=== PATIENT | female | born 1955 | race Native Hawaiian/Other Pacific Islander ===

== ENCOUNTER 2018-06-26 11:07 | Emergency (ER) | payer OTHER ==
[2018-06-26 11:11] VITALS: BMI 19.8
--- NOTE | 2018-06-26 11:29 | ED PDOC ---
Arrival/HPI - General Historian: Patient - History of Present Illness Narrative History of Present Illness (Text): 06/26/18 11:11 62 y/o female, pmh including asthma, nkda, post menopausal, c/o rt. periorbital itching x 2 days. Pt. stated that she was working outside to plant the garden at home, came in and rubbing the periorbital as it was itching, no blurry vision/change in vision/painful eye movement, no headache, no numbness or tingling, no pain or burning sensation to the rash as per patient and just "itching" as per patient. Past Medical History - Provider Review Nursing Documentation Reviewed: Yes - Infectious Disease Hx of Infectious Diseases: None - Tetanus Immunization Tetanus Immunization: Unknown - Pulmonary Hx Chronic Obstructive Pulmonary Disease (COPD): Yes - Psychiatric Hx Depression: No Hx Emotional Abuse: No Hx Physical Abuse: No Hx Substance Use: No - Suicidal Assessment Feels Threatened In Home Enviroment: No Family/Social History - Physician Review Nursing Documentation Reviewed: Yes Family/Social History: Unknown Family HX Hx Alcohol Use: No Hx Substance Use: No Hx Substance Use Treatment: No Allergies/Home Meds Allergies/Adverse Reactions: Allergies No Known Allergies Allergy (Verified 09/03/12 07:56) Home Medications: Home Meds Medication Instructions Recorded Confirmed Albuterol Sulfate [Proair Hfa] 0.09 mg IH PRN PRN 09/03/12 06/26/18 Fluticasone/Salmeterol [Advair 1 dsk IH DAILY 09/03/12 06/26/18 Diskus 100/50] Review of Systems - Review of Systems Constitutional: absent: Fatigue, Fevers Eyes: absent: Vision Changes, Photophobia, Eye Pain ENT: absent: Hearing Changes Respiratory: absent: SOB, Cough Cardiovascular: absent: Chest Pain Gastrointestinal: absent: Abdominal Pain, Nausea, Vomiting Skin: Rash, Pruritis, Skin Lesions. absent: Laceration, Abscess, Ulcer, Cellulitis Neurological: absent: Headache, Dizziness Psychiatric: absent: Anxiety, Depression, Suicidal Ideation Physical Exam Vital Signs Reviewed: Yes Temperature: Afebrile Pulse: Regular Respiratory Rate: Normal Appearance: Positive for: Well-Appearing, Non-Toxic, Comfortable Pain Distress: None Mental Status: Positive for: Alert and Oriented X 3 - Systems Exam Head: Present: Atraumatic, Normocephalic Pupils: Present: PERRL Extroacular Muscles: Present: EOMI, Other (vision 20/50 bilaterally). No: Entrapment Conjunctiva: Present: Normal, Other (Rt. eye examined with fluorsein strip show there is no uptake and no corneal abrasion/ulcers or any dendritic lesions. Rt. periorbital is mild erythematous and mild swelling which is unilateral to the right not crossing the midline, ) Ears: Present: NORMAL TM, Normal Canal. No: Erythema Mouth: Present: Moist Mucous Membranes Pharnyx: No: ERYTHEMA, EXUDATE, TONSILS ENLARGED Nose (External): Present: Atraumatic. No: Abrasion, Contusion, Laceration Nose (Internal): Present: Normal Inspection, No Active Bleeding. No: Rhinorrhea, Septal Deviation, Septal Hematoma, Epistaxis Neck: Present: Normal Range of Motion, Trachea Midline. No: Meningeal Signs, MIDLINE TENDERNESS, Paraspinal Tenderness, Lymphadenopathy Respiratory/Chest: Present: Clear to Auscultation, Good Air Exchange. No: Respiratory Distress, Accessory Muscle Use Cardiovascular: Present: Regular Rate and Rhythm, Normal S1, S2. No: Murmurs Abdomen: No: Tenderness, Distention, Peritoneal Signs, Rebound, Guarding Back: Present: Normal Inspection. No: CVA Tenderness, Midline Tenderness, Paraspinal Tenderness, Pain with Leg Raise, Decubitus Ulcer Upper Extremity: Present: Normal Inspection. No: Cyanosis, Edema Lower Extremity: Present: Normal Inspection. No: Edema Neurological: Present: GCS=15, CN II-XII Intact, Speech Normal, Motor Func Grossly Intact, Normal Cerebellar Funct, Gait Normal, Memory Normal Skin: Present: Warm, Dry, Normal Color. No: Rashes Lymphatic: No: Cervical Adenopathy, Axillary Adenopathy Psychiatric: Present: Alert, Oriented x 3, Normal Insight, Normal Concentration Medical Decision Making ED Course and Treatment: 06/26/18 11:40 Dermatitis vs. shingles vs. preseptal cellulitis -I explained to the patient due to her age and periorbital swelling with redness, will cover her for shingles and preseptal cellulitis with valtrex/augmentin and bactrim ds. I advised her to call the opthlamologist today and see them in the office today for further evaluation. She should stay out of garden and work until this condition resolved. Pt. has no difficulty or painful movement of the eye, no signs of orbital cellulitis at this time. 06/26/18 13:19 -I spoke to Dr. Mancilla, discussed about the case and he recommend to discharge the patient and tell her to go to the office now. Pt. is aware of this plan and she would go see dr. mancilla today. -Discharge home with valtrex, augmentin, bactrim ds, claritin, prednisone, cold compress, go see the field tech Dr. Mancilla today as they are expecting you, see your own pmd within 2 days, return to the ER for any new or worsening signs or symptoms. - PA / RECOVERER / Resident Statement MD/DO has reviewed & agrees with the documentation as recorded. Disposition/Present on Arrival - Present on Arrival Any Indicators Present on Arrival: No History of DVT/PE: No History of Uncontrolled Diabetes: No Urinary Catheter: No History of Decub. Ulcer: No History Surgical Site Infection Following: None - Disposition Have Diagnosis and Disposition been Completed?: Yes Diagnosis: Periorbital swelling, Rash Disposition: HOME/ ROUTINE Disposition Time: 12:01 Patient Plan: Discharge Patient Problems: Current Active Problems Problem Status Onset Periorbital swelling Acute Rash Acute Condition: GOOD Additional Instructions: -Discharge home with valtrex, augmentin, bactrim ds, claritin, prednisone, cold compress, go see the field tech Dr. Mancilla today as they are expecting you, see your own pmd within 2 days, return to the ER for any new or worsening signs or symptoms. Prescriptions: Amoxicillin/Clavulanate [Augmentin 875 MG-125 MG] 1 tab PO BID #20 tab Loratadine [Claritin] 10 mg PO DAILY PRN #10 tab PRN Reason: Other Prednisone 50 mg PO DAILY #4 tablet Sulfamethoxazole/Trimethoprim [Bactrim DS 800 mg-160 mg] 1 tab PO BID #20 tab Valacyclovir HCl [Valtrex] 1,000 mg PO TID #21 tablet Referrals: FAMILY PROVIDER,NO [Primary Care Provider] - Follow up with primary Stephen Lawson MD [Staff Provider] - Follow up with primary Bryan Mancilla MD [Staff Provider] - Follow up with primary Forms: WORK NOTE
[2018-06-26] MEDS ORDERED: Tmp-Smz 800 mg-160 mg DS Tab PO STA (11:30)
[2018-06-26] MEDS ORDERED: DiphenhydrAMINE 12.5 mg/5 ml LIQ UD (5 ml) PO STA (11:30)
[2018-06-26] MEDS ORDERED: Amoxicillin-Clav 875-125 mg Tab PO STA (11:30)
[2018-06-26 11:54] VITALS: RESP 18; TEMP 98.2
[2018-06-26 13:19] VITALS: BP 110/58; PULSE 74; O2SAT 100
== END 2018-06-26 13:23 | disposition home or self-care (01) ==
LOC: ED 11:07
DX: H57.89 Other specified disorders of eye and adnexa (principal); R21 Rash and other nonspecific skin eruption; J44.9 Chronic obstructive pulmonary disease, unspecified